=== PATIENT | female | born 2005 | race Hispanic/Latino ===

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

== ENCOUNTER 2025-01-23 00:31 | Emergency (ER) | payer OTHER ==
[~2025-01-23] VITALS: Ht 170.2 cm; Wt 53.5 kg
[~2025-01-23 00:31] MED LIST: KETOROLAC TROME10 MG PO; ONDANSETRON ODT4 MG PO
[2025-01-23 00:34] VITALS: TEMP 97.6
[2025-01-23] MEDS: PREDNISONE 20 MG TAB PO STA (00:40)
[2025-01-23] MEDS: FAMOTIDINE 20 MG TAB PO ONE (00:40)
[2025-01-23] MEDS: DIPHENHYDRAMINE HCL 25 MG CAP PO ONE (00:40)
[2025-01-23 00:41] VITALS: BP 153/92
[2025-01-23] MEDS: EPINEPHRINE HCL 1:1000 1ML 1 MG/ML AMP INJ ONE (00:41)
[2025-01-23] MEDS ORDERED: PREDNISONE20 MG PO (01:55)
[2025-01-23] MEDS ORDERED: EPINEPHRIN0.3 MG/0.3 IM (01:55)
[2025-01-23] MEDS ORDERED: PEPCID20 MG PO (01:55)
[2025-01-23 01:57] VITALS: PULSE 99; RESP 14; O2SAT 97
== END 2025-01-23 02:01 | disposition home or self-care (01) ==
LOC: ER 00:33
DX: L50.9 Urticaria, unspecified (principal)
CPT/HCPCS: 83518; 87070; 99283; J0171; J7512